=== PATIENT | male | born 1995 | race Caucasian/White ===

== ENCOUNTER 2017-01-21 10:24 | Emergency (ER) | payer BC ==
[2017-01-21 10:32] VITALS: BP 118/96; PULSE 68; RESP 17; TEMP 97.5; O2SAT 98
--- NOTE | 2017-01-21 10:49 | EDPHY ---
H & P Stated Complaint: aranda/visual issues/dizzyness/hx brain malformation and epilepsy Time Seen by Provider: 01/21/17 10:49 - Personal History Current Tetanus/Diphtheria Vaccine: Yes - Medical/Surgical History Hx Asthma: No Hx Chronic Respiratory Disease: No Hx Diabetes: No Hx Cardiac Disease: No Hx Renal Disease: No Hx Cirrhosis: No Hx Alcoholism: No Hx HIV/AIDS: No Hx Splenectomy or Spleen Trauma: No Other PMH: R SHOULDER SURG, PARTIAL SIEZURES, epilepsy/syncope - Social History Smoking Status: Never smoked Constitutional: Initial Vital Signs Temperature (C) 36.4 C 01/21/17 10:28 Heart Rate 68 01/21/17 10:28 Respiratory Rate 17 01/21/17 10:28 Blood Pressure 118/96 H 01/21/17 10:28 O2 Sat (%) 98 01/21/17 10:28 O2 Delivery Mode Room Air Allergies/Adverse Reactions: No Known Allergies Allergy (Verified 01/21/17 10:27) Home Medications: Medication Instructions Recorded Oxtellar Xr 05/20/16 VIMPAT 05/20/16 Medical Decision Making - Diagnostics Imaging: Discussed imaging studies w/ costumer Radiologist ED Course/Re-evaluation: CHIEF COMPLAINT: Headache, blurred vision. HISTORY OF PRESENT ILLNESS: The patient is a 21 y/o male, with a history of partial epilepsy, arriving with his mother complaining of "migraine symptoms" onset this morning. He complains of a posterior headache, difficulty balancing, and blurred vision. His mom says "his eyes were twitching." He says these symptoms do not feel like previous partial seizures. No history of migraines. He denies recent drug or alcohol use, head injuries, or recent illness. No weakness or paresthesias. His vision has since improved. REVIEW OF SYSTEMS: A 10 point review of systems was performed and is negative with the exception of the elements mentioned in the history of present illness. PHYSICAL EXAM: HR, BP, O2 Sat, RR. Temp noted General Appearance: Alert, well hydrated, appropriate, and non-toxic appearing. Head: Atraumatic without scalp tenderness or obvious injury Eyes: Pupils equal, round, reactive to light and accommodation, EOMI, no trauma , no injection. Throat: Mucus membranes moist. Neck: Supple, nontender, no lymphadenopathy. Respiratory: No retractions, no distress, no wheezes, and no accessory muscle use. Lungs are clear to auscultation bilaterally. Cardiovascular: Regular rate and rhythm, no murmurs, rubs, or gallops. Good capillary refill all extremities. Gastrointestinal: Abdomen is soft, nontender, non-distended, no masses, no rebound, no guarding, no peritoneal signs. Musculoskeletal: Normal active ROM of all extremities, atraumatic. Neurological: Alert, appropriate, and interactive. The patient has normal DTRs and non-focal cranial nerves, motor, sensory, and cerebellar exam. Slight cerebellar delay on right during [id number]. Skin: No rashes, good turgor, no nodules on palpation. Past medical history: Partial epilepsy - Vimpat XL Past surgical history: denies Family history: noncontributory Social history: Mother at bedside. DIAGNOSTICS/PROCEDURES/CRITICAL CARE TIME: Brain MRI: congenital changes. Nothing acute. DIFFERENTIAL DIAGNOSIS: The differential diagnosis for the patient's headache included but was not limited to subarachnoid hemorrhage, migraine headache, tension headache and infectious causes such as meningitis, pharyngitis and sinusitis. MEDICAL DECISION MAKING: This is a 21 y/o male with a history of partial seizures presenting with a few- hour history of occipital headache and blurred vision. His neuro exam is largely nonfocal, but he has some delayed on the right side during finger-to- nose exam. Plan for IV, basic labs, IV fluids, 4mg IV Zofran, and brain MRI. Brain MRI shows congenital abnormalities, but nothing acute per radiologist. I discussed findings with the patient. His neuro exam remains unchanged. He would like to leave without further work up. He has an appointment scheduled with his neurologist on Tuesday, which I advised him to keep. Strict return precautions given. He is comfortable with this plan. - Data Points Laboratory Results: Laboratory Results 01/21/17 10:57 01/21/17 10:57 01/21/17 01/21/17 10:57 10:57 WBC 6.80 10^3/uL 10^3/uL (3.80-9.50) RBC 5.12 10^6/uL 10^6/uL (4.40-6.38) Hgb 15.6 g/dL g/dL (13.7-17.5) Hct 43.8 % % (40.0-51.0) MCV 85.5 fL fL (81.5-99.8) MCH 30.5 pg pg (27.9-34.1) MCHC 35.6 g/dL g/dL (32.4-36.7) RDW 12.6 % % (11.5-15.2) Plt Count 218 10^3/uL 10^3/uL (150-400) MPV 10.0 fL fL (8.7-11.7) Neut % (Auto) 48.3 % % (39.3-74.2) Lymph % (Auto) 31.5 % % (15.0-45.0) Dare % (Auto) 9.0 % % (4.5-13.0) Eos % (Auto) 10.0 % H % (0.6-7.6) Baso % (Auto) 0.9 % % (0.3-1.7) Nucleat RBC Rel Count 0.0 % % (0.0-0.2) Absolute Neuts (auto) 3.29 10^3/uL 10^3/uL (1.70-6.50) Absolute Lymphs (auto) 2.14 10^3/uL 10^3/uL (1.00-3.00) Absolute Monos (auto) 0.61 10^3/uL 10^3/uL (0.30-0.80) Absolute Eos (auto) 0.68 10^3/uL H 10^3/uL (0.03-0.40) Absolute Basos (auto) 0.06 10^3/uL 10^3/uL (0.02-0.10) Absolute Nucleated RBC 0.00 10^3/uL 10^3/uL (0-0.01) Immature Gran % 0.3 % % (0.0-1.1) Immature Gran # 0.02 10^3/uL 10^3/uL (0.00-0.10) Sodium 139 mEq/L mEq/L (134-144) Potassium 4.1 mEq/L mEq/L (3.5-5.2) Chloride 103 mEq/L mEq/L (97-110) Carbon Dioxide 27 mEq/l mEq/l (22-31) Anion Gap 9 mEq/L mEq/L (8-16) BUN 17 mg/dL mg/dL (7-23) Creatinine 1.0 mg/dL mg/dL (0.7-1.3) Estimated GFR > 60 Glucose 92 mg/dL mg/dL (70-100) Calcium 9.6 mg/dL mg/dL (8.5-10.4) Medications Given: Discontinued Medications Sodium Chloride (Ns) 1,000 mls @ 0 mls/hr IV ONCE ONE PRN Reason: Wide Open Stop: 01/21/17 11:15 Last Admin: 01/21/17 11:20 Dose: 1,000 mls Ondansetron HCl (Zofran) 4 mg IVP EDNOW ONE Stop: 01/21/17 11:15 Last Admin: 01/21/17 11:22 Dose: 4 mg Departure - Departure Disposition: Home, Routine, Self-Care Clinical Impression: Blurred vision, Atypical migraine Headache Qualifiers: Headache type: other headache syndrome Qualified Code(s): G44.89 - Other headache syndrome Condition: Good Instructions: Migraine Headache (ED), Acute Headache (ED), Blurred Vision (ED) Additional Instructions: 1. Follow up with your neurologist in the next 2-3 days. You've been referred to a local neurologist if needed. 2. Return to the ED for weakness or numbness on one side of your body, severe headache, confusion, or other worsening of condition. Referrals: Jeferson Maria MD [Medical Doctor] - As per Instructions Report Scribed for: Obdulio Price Report Scribed by: Alma Swann Date of Report: 01/21/17 Time of Report: 10:54
[2017-01-21] MEDS ORDERED: NS 1,000 ML IV ONE (11:14)
[2017-01-21] MEDS ORDERED: ONDANSETRON 4 MG/2 ML VIAL IVP ONE (11:14)
[2017-01-21 11:22] LABS: % IMMATURE GRANULYOCYTES 0.3 % (0.0-1.1); ABSOLUTE IMMATURE GRANULOCYTES 0.02 10^3/uL (0.00-0.10); ADD DIFF? NO; ADD MORPH? NO; ADD SCAN? NO; ATYPICAL LYMPHOCYTE FLAG 20 (0-99); FRAGMENT RBC FLAG 0 (0-99); HEMATOCRIT 43.8 % (40.0-51.0); HEMOGLOBIN 15.6 g/dL (13.7-17.5); LEFT SHIFT FLG 0 (0-99); LIPEMIA HEMOLYSIS FLAG 90 (0-99); MEAN CELL HEMOGLOBIN 30.5 pg (27.9-34.1); MEAN CELL HEMOGLOBIN CONCENTR. 35.6 g/dL (32.4-36.7); MEAN CELL VOLUME 85.5 fL (81.5-99.8); PLATELET CLUMPS FLAG 0 (0-99); PLATELET COUNT 218 10^3/uL (150-400); RED BLOOD CELL COUNT 5.12 10^6/uL (4.40-6.38); RED CELL DISTRIBUTION WIDTH 12.6 % (11.5-15.2)
[2017-01-21 11:29] LABS: ANION GAP 9 mEq/L (8-16); CALCIUM 9.6 mg/dL (8.5-10.4); CARBON DIOXIDE 27 mEq/l (22-31); CHLORIDE 103 mEq/L (97-110); GLOMERULAR FILTRATION RATE > 60; GLUCOSE 92 mg/dL (70-100); POTASSIUM 4.1 mEq/L (3.5-5.2); SODIUM 139 mEq/L (134-144)
[2017-01-21] MEDS ORDERED: GADOBUTROL 10 ML VIAL IVP ONE (12:44)
== END 2017-01-21 13:31 | disposition home or self-care (01) ==
DX: G43.809 Other migraine, not intractable, without status migrainosus (principal); H53.8 Other visual disturbances
CPT/HCPCS: 96374; A9585; J2405